=== PATIENT | female | born 1960 | race Two or more races ===

== ENCOUNTER 2022-09-20 16:26 | Emergency (ER) | payer BC, OTHER ==
[~2022-09-20] VITALS: Ht 165.1 cm; Wt 59.0 kg
[2022-09-20] MEDS ORDERED: NAPROXEN 500 MG TAB PO ONE (19:15)
[2022-09-20 20:55] VITALS: BP 132/86; PULSE 87; RESP 16; TEMP 98.4; O2SAT 98
== END 2022-09-20 21:15 | disposition home or self-care (01) ==
LOC: ER 16:26
DX: M25.461 Effusion, right knee (principal); M25.561 Pain in right knee; M79.89 Other specified soft tissue disorders
CPT/HCPCS: 73562